=== PATIENT | female | born 1965 | race Caucasian/White ===

== ENCOUNTER → 2017-04-19 | Outpatient (CLI) | payer OTHER ==
--- NOTE | 2017-04-20 07:52 | REP ---
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 Technique: Real time stern scale and color Doppler evaluation of the popliteal fossa using linear high frequency transducer. Findings: Directed ultrasound examination of the popliteal fossa demonstrates a 2.7 x 1.7 x 2.0 cm popliteal artery aneurysm which appears partially thrombosed and demonstrates normal arterial wave pattern through the patent lumen. Popliteal vein is identified and normal in appearance and flow characteristics. No Do's cyst identified. Impression: Partially thrombosed popliteal artery aneurysm. Signed by Jonathan Patricia MD 04/20/2017 07:43 A
== END ==
LOC: M RAD 10:16
PROVIDERS: ATTEND Surgery Vascular Surgery
DX: I72.4 Aneurysm of artery of lower extremity (principal)

== ENCOUNTER → 2017-05-13 | Outpatient (CLI) | payer OTHER ==
[~2017-05-13] MED LIST: ISOVUE-370 76% 100ML VIAL (Q9967) As Ordered ONE
--- NOTE | 2017-05-13 17:04 | REP ---
Clinical: Evaluate for popliteal vein dilatation/aneurysm. Technique: Axial contrast enhanced images of the left lower extremity from the pelvis to the ankle using 100 ml Isovue 370 intravenous contrast material with coronal and sagittal re-formations. Findings: There is focal dilatation of the distal superficial femoral vein measuring 1.6 cm diameter and approximately 2.3 cm in craniocaudal length (images 109 - 120) as well as popliteal vein aneurysm measuring 1.8 x 2.2 cm maximal AP and transverse diameter and approximately 2.7 cm in craniocaudal length (images 130 - 145). The left lower extremity arterial vessels appear normal with appropriate three-vessel runoff to the ankle. Impression: Focal aneurysmal dilatation to the distal superficial femoral vein and popliteal vein as described above. The arterial vasculature to the left lower extremity appears normal including three-vessel runoff to the ankle. Signed by Jonathan Patricia MD 05/13/2017 04:55 P
== END ==
LOC: M RAD 14:47
PROVIDERS: ATTEND Surgery Vascular Surgery
DX: I87.392 Chronic venous hypertension (idiopathic) with other complications of left lower extremity (principal)
CPT/HCPCS: 73701; Q9967

== ENCOUNTER → 2017-06-17 | Outpatient (CLI) | payer OTHER ==
--- NOTE | 2017-06-17 10:31 | REPMRS ---
Patient History The patient states she has not had a clinical breast exam in over a year. Took hormonal contraceptives for 6 years. Patient states [place], file area calling for Digital Mammo Screening Bilat: June 17, 2017 - Exam #: [id number] Bilateral CC and MLO view(s) were taken. Technologist: Claudia Vences, Technologist Prior study comparison: August 19, 2014, bilateral digital mammo screening bilat performed at [facility]. January 24, 2013, left breast digital mammo diagnostic bilateral performed at [facility]. FINDINGS: The breast tissue is extremely dense which could obscure a lesion on mammography. There has been no change in the appearance of the mammogram from the prior studies. There is diffuse dense residual fibroglandular tissue which is fairly symmetric. There is no interval development of dominant mass, architectural distortion, or clustered microcalcification typical of malignancy. Stereotactic clip in the left UOQ unchanged from priors. There are scattered, small, benign calcifications of doubtful clinical significance. ASSESSMENT: BI-RADS/ACR category 2 mammogram. Benign finding(s). Recommendation Routine screening mammogram in 1 year (for women over age 40). This mammogram was interpreted with the aid of an FDA-approved computer-aided dectection system. A. Negative x-ray reports should not delay biopsy if a dominant or clinically suspicious mass is present. B. Four to eight percent of cancers are not identified by mammography. C. Adenosis and dense breast may obscure an underlying neoplasm. Electronically Signed By: Kris Tovar MD 06/17/17 1256
== END ==
LOC: M RAD 09:39
PROVIDERS: ATTEND Family Medicine
DX: Z12.31 Encounter for screening mammogram for malignant neoplasm of breast (principal); R92.8 Other abnormal and inconclusive findings on diagnostic imaging of breast

== ENCOUNTER 2017-11-17 08:27 | Emergency (ER) | payer OTHER ==
[2017-11-17] MEDS ORDERED: ONDANSETRON 4MG/2ML VIAL (J2405) IV (09:15)
[2017-11-17 09:19] LABS: BASO % 0.7 % (0.0-1.0); EOS # 0.1 10^3/uL (0.0-0.50); EOS % 1.8 % (0.0-3.0); HEMATOCRIT 40.8 % (36.0-47.0); HEMOGLOBIN 13.5 g/dl (12.0-16.0); IMMATURE GRANULOCYTE % 0.2 % (0-0); LYMPH # 1.2 10^3/uL (1.5-4.5); LYMPH % 28.2 % (24.0-44.0); MEAN CORPUSCULAR HEMOGLOBIN 30.1 pg (27.0-33.0); MEAN CORPUSCULAR HGB CONC 33.1 g/dl (32.0-36.5); MEAN CORPUSCULAR VOLUME 90.9 fl (80.0-96.0); MONO # 0.6 10^3/uL (0.0-0.8); MONO % 14.1 % (0.0-5.0); NEUTROPHILS # 2.4 10^3/uL (1.8-7.7); PLATELET COUNT, AUTOMATED 174 10^3/uL (150-450); RED BLOOD COUNT 4.49 10^6/uL (4.00-5.40); RED CELL DISTRIBUTION WIDTH 13.2 % (11.5-14.5); WHITE BLOOD COUNT 4.3 10^3/uL (4.0-10.0)
[2017-11-17] MEDS: METOCLOPRAMIDE INJ 10MG/2ML VIAL (J2765) IV (09:26)
[2017-11-17] MEDS: MORPHINE 2 MG/ML 1ML SYRINGE IV (09:26)
[2017-11-17] MEDS: NS 1,000 ML IV (09:27)
[2017-11-17 09:42] LABS: ALBUMIN 3.7 GM/DL (3.2-5.2); ALBUMIN/GLOBULIN RATIO 1.32 (1.00-1.93); ALKALINE PHOSPHATASE 59 U/L (45-117); ALT/SGPT 18 U/L (12-78); ANION GAP 7 MEQ/L (8-16); AST/SGOT 15 U/L (7-37); BILIRUBIN,DIRECT 0.1 MG/DL (0.0-0.2); BILIRUBIN,TOTAL 0.5 MG/DL (0.2-1.0); BLOOD UREA NITROGEN 17 MG/DL (7-18); CALCIUM LEVEL 8.6 MG/DL (8.5-10.1); CARBON DIOXIDE LEVEL 29 MEQ/L (21-32); CHLORIDE LEVEL 104 MEQ/L (98-107); CREATININE FOR GFR 0.92 MG/DL (0.55-1.02); GLOMERULAR FILTRATION RATE > 60.0 (>51); GLUCOSE, FASTING 77 MG/DL (70-105); LIPASE 136 U/L (73-393); POTASSIUM SERUM 3.9 MEQ/L (3.5-5.1); SODIUM LEVEL 140 MEQ/L (136-145); TOTAL PROTEIN 6.5 GM/DL (6.4-8.2)
[2017-11-17] MEDS: GASTROGRAFIN SOLUTION 30ML PO (10:55)
[2017-11-17] MEDS: GASTROGRAFIN SOLUTION 30ML (Q9963) PO (11:25)
[2017-11-17] MEDS ORDERED: ISOVUE-370 76% 100ML VIAL (Q9967) As Ordered (12:04)
== END 2017-11-17 15:48 | disposition home or self-care (01) ==
LOC: M ED 08:27
DX: J10.1 Influenza due to other identified influenza virus with other respiratory manifestations (principal); R10.9 Unspecified abdominal pain; Z79.01 Long term (current) use of anticoagulants; Z79.899 Other long term (current) drug therapy
CPT/HCPCS: Q9963

== ENCOUNTER → 2017-11-21 | Outpatient (CLI) | payer OTHER | LOC: M RAD 12:42 | DX: I86.8 Varicose veins of other specified sites (principal) | CPT/HCPCS: 93971 ==

== ENCOUNTER → 2018-06-15 | Outpatient (CLI) | payer OTHER | LOC: M RAD 16:50 | DX: I87.392 Chronic venous hypertension (idiopathic) with other complications of left lower extremity (principal); I72.4 Aneurysm of artery of lower extremity | CPT/HCPCS: 93971 ==